=== PATIENT | female | born 1960 | race Caucasian/White ===

== ENCOUNTER 2019-06-16 16:27 | Outpatient (RCR) | payer BC ==
[~2019-06-16 16:27] MED LIST: COREG12.5 MG PO; HCTZ 25MG TAB25 MG PO; ZITHROMAX 250M250 MG PO
== END 2019-07-15 16:36 | disposition home or self-care (01) ==
LOC: MKS.ESL.PT 16:27
DX: C50.211 Malignant neoplasm of upper-inner quadrant of right female breast (principal)

== ENCOUNTER → 2019-07-08 | Outpatient (CLI) | payer BC ==
[~2019-07-08] VITALS: Ht 160 cm; Wt 75.0 kg
[2019-07-08 12:28] VITALS: BP 165/97; PULSE 20
[2019-07-08 13:05] VITALS: BP 147/83; PULSE 68
--- NOTE | 2019-07-08 13:05 | NUR ---
Dr Lazo here, procedure started
[2019-07-08 13:15] VITALS: BP 152/83; PULSE 70
[2019-07-08 13:35] VITALS: BP 148/90; PULSE 86
--- NOTE | 2019-07-08 13:35 | NUR ---
juan luis obtained and put in formulin, bandaid over site clean and dry
[2019-07-08 13:40] VITALS: BP 141/93; PULSE 75
== END ==
LOC: COL.RAD 11:53
DX: C50.211 Malignant neoplasm of upper-inner quadrant of right female breast (principal); I10 Essential (primary) hypertension

== ENCOUNTER → 2020-02-10 | Outpatient (CLI) | payer BC | LOC: MC.RAD 13:03 | DX: C50.811 Malignant neoplasm of overlapping sites of right female breast (principal); N63.20 Unspecified lump in the left breast, unspecified quadrant; Z17.1 Estrogen receptor negative status [ER-]; Z98.82 Breast implant status; Z98.890 Other specified postprocedural states | CPT/HCPCS: G0279 ==

== ENCOUNTER → 2022-04-27 | Outpatient (CLI) | payer BC | LOC: MC.RAD 10:51 | DX: N63.20 Unspecified lump in the left breast, unspecified quadrant (principal) ==